=== PATIENT | male | born 1975 | race Caucasian/White ===

== ENCOUNTER → 2018-11-22 11:05 | Outpatient (POV) | payer SELFPAY | PROVIDERS: Visit Provider Dentist | DX: Z00.00 Encounter for general adult medical examination without abnormal findings (principal) ==

== ENCOUNTER → 2018-12-27 10:00 | Outpatient (POV) | payer SELFPAY | PROVIDERS: Visit Provider Dentist | DX: Z00.00 Encounter for general adult medical examination without abnormal findings (principal) ==